=== PATIENT | male | born 1990 | race Caucasian/White ===

== ENCOUNTER 2018-05-15 14:19 | Emergency (ER) | payer OTHER ==
--- NOTE | 2018-05-15 14:43 | PDOC ---
Rapid Medical Evaluation Time Seen by Provider: 05/15/18 14:37 Medical Evaluation: 05/15/18 14:37 Pt presents with R wrist pain. 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 Denies trauma or falling. Pt is R handed Exam:(+) finklestine test on the right Orders: Nothing Pt to proceed to the ED for further evaluation Discharge Disposition - Diagnosis Right wrist pain - Referrals - Patient Instructions - Post Discharge Activity
[2018-05-15 14:50] VITALS: BP 134/80; PULSE 62; TEMP 98.7; BMI 24.7
--- NOTE | 2018-05-15 15:57 | PDOC ---
History of Present Illness - General Chief Complaint: Injury Stated Complaint: RT WRIST INJURY Time Seen by Provider: 05/15/18 14:37 - History of Present Illness Initial Comments: 05/15/18 15:55 27-year-old male presents for evaluation of right wrist pain times one month no trauma. Past History - Past Medical History Allergies/Adverse Reactions: Allergies Allergy/AdvReac Type Severity Reaction Status Date / Time No Known Allergies Allergy Verified 05/15/18 14:37 Home Medications: Ambulatory Orders NK [No Known Home Medication] 05/15/18 COPD: No Other medical history: DENIES - Suicide/Smoking/Psychosocial Hx Smoking History: Never smoked Review of Systems - Review of Systems Musculoskeletal: Yes: Joint Pain *Physical Exam - Vital Signs Last Vital Signs Temp Pulse Resp BP Pulse Ox 98.7 F 62 19 134/80 100 05/15/18 14:38 05/15/18 14:38 05/15/18 14:38 05/15/18 14:38 05/15/18 14:38 - Physical Exam Comments: 05/15/18 15:56 Right wrist and hand skin color and temperature are normal. There is full range of motion supination and pronation. Tenderness over the volar aspect and FCR. No gross sensorimotor deficits neurovascularly intact all other areas wrist are nontender. Pain with terminal pronation and supination Moderate Sedation - Procedure Monitoring Vital Signs: Procedure Monitoring Vital Signs Temperature 98.7 F 05/15/18 14:38 Pulse Rate 62 05/15/18 14:38 Respiratory Rate 19 05/15/18 14:38 Blood Pressure 134/80 05/15/18 14:38 O2 Sat by Pulse Oximetry (%) 100 05/15/18 14:38 ED Treatment Course - RADIOLOGY Radiology Studies Ordered: Category Date Time Status WRIST- RIGHT [RAD] Stat Radiology 05/15/18 15:28 Ordered Medical Decision Making - Medical Decision Making 05/15/18 15:58 No evidence of fracture or trauma there is a bony island in the lunate *DC/Admit/Observation/Transfer Diagnosis at time of Disposition: Right wrist pain - Discharge Dispostion Disposition: HOME Condition at time of disposition: Stable Decision to Admit order: No - Referrals Referrals: Bob Ogden MD [Staff Physician] - - Patient Instructions Additional Instructions: vuelva a la jolanta de emergencias si los sntomas empeoran o no se resuelven. Por favor, delbert un seguimiento con ciruga de mano en 1-2 michele para destiny evaluacin adicional y opciones de tratamiento. Tylenol y Motrin reginald se indica para el dolor. return to the emergency room should symptoms worsen or go unresolved. Please follow-up with hand surgery in 1-2 days for further evaluation and treatment options. Tylenol and Motrin as directed for pain. - Post Discharge Activity
== END 2018-05-15 16:07 | disposition home or self-care (01) ==
LOC: JERFT 14:19 → JER 14:19 → JERFT 16:07
DX: M25.531 Pain in right wrist (principal); W29.8XXA Contact with other powered hand tools and household machinery, initial encounter; Y93.H3 Activity, building and construction; Y92.69 Other specified industrial and construction area as the place of occurrence of the external cause; Y99.0 Civilian activity done for income or pay
CPT/HCPCS: 73110-TC-RT-FY; 99281-25